=== PATIENT | female | born 1965 ===

== ENCOUNTER → 2019-01-15 | Outpatient (CLI) | payer BC ==
--- NOTE | 2019-01-15 16:52 | CONS ---
Assessment/Plan Assessment/Plan Hospital Course (Demo Recall) 53-year-old female with bilateral patellofemoral syndrome with possible quadricep insertion tendinitis as she had significant pain over that area after workouts. At this time recommending initiation of conservative treatment. Plan: Physical therapy for bilateral patellofemoral syndrome and quadricep insertion tendinitis NSAID regiment with meloxicam 7.5 mg. Recommend the patient continue taking Pro tonix as she has a history of gastritis. She should not take ibuprofen with the meloxicam. She is instructed if she has stomach pain she should stop taking meloxicam. Patient should rest from her gym activities until she begins physical therapy and the therapist thinks she is ready to return to the gym. Follow-up in about 12 weeks. Consultation Date/Type/Reason Admit Date/Time Date of Consultation: Jan 15, 2019 Reason for Consultation Bilateral knee pain Date/Time of Note DATE: 01/15/19 TIME: 16:45 Hx of Present Illness This Is a very active 53-year-old female with a chief complaint of right and left knee pain. The pain is equal in both knees. The pain began approximately 2 weeks ago. The patient's pain is in the anterior aspect of the right and left knee. When this first occurred she had severe sharp pain just proximal to the patella. Now the pain is only anterior. Pain is not radiating to the lower leg. The pain is rated as a 4/10. Patient denies complaints of numbness or tingling. The pain is exacerbated by climbing stairs and ambulation. Pain is not relieved by NSAID's. Patient has been taking ibuprofen on a p.r.n. basis with Protonix as well as using ice. She is frustrated by this pain is limiting her physical activity. She frequently goes to the gym and participates in exercise classes. ----- Duration: 2 weeks Injury: No specific injury. Pain is worse after working out Walking tolerance: Unlimited Limp: No Support: No Swelling: No Crepitation: No Instability: No Stairs: Uses normally Physical Therapy: No Injections: No NSAID's: Ibuprofen Prior surgery: No Back pain: No Hip pain: No Risk of AVN : No Patient denies fever, chills, shortness of breath, chest pain, nausea/vomiting, constipation, diarrhea, numbness, and tingling. Past Medical History Cervical cancer Headaches Past Surgical History Breast reduction Arthroscopic partial medial meniscectomy knee surgery 2014 Family History Significant Family History: no pertinent family hx Social History Alcohol Use: rarely Smoking Status: Former smoker Drug Use: none Exam/Review of Systems Exam Vitals Weight: 158 Height: 5 foot 8 inches Temperature: 90.6 Heart Rate: 67 Blood Pressure: 120/82 Respiratory Rate: 12 Exam General: Awake, alert, in no acute distress, pleasant and cooperative Heart: regular rhythm Lungs: breathing comfortably, no tachypnea or dyspnea MUSCULOSKELETAL: Right and Left Knee This is a well developed female who is alert, oriented times three and in no apparent distress. Skin is intact over the right and left knee as well as the lower extremity with no abrasions, lacerations, or ulcerations. Observation of the patient's gait reveals a non-antalgic gait with no thrust. Frontal plane alignment is neutral on the right and left knees. There is no pain on palpation of either joint line. There is no pain over the quadricep insertion or patella tendon. The patient demonstrates grinding anteriorly with ROM. Range of motion: 0 extension to approximately 140 degrees of flexion. Collateral ligament testing reveals no instability with varus or valgus stress at 0 and 30 degrees of flexion. Negative Liliana's and negative posterior drawer. Neurovascularly intact with 5/5 EHL/tibialis anterior/gastroc. Sensation intact to light touch in a sural, saphenous, deep peroneal, superficial peroneal, medial and lateral plantar nerve distribution. Palpable, symmetric dorsalis pedis and posterior tibial pulses in both lower extremities. Hip examination normal Imaging Imaging The patient received a standard set of films today that were personally revi ewed. Imaging included a standing bilateral knee AP, PA flexion, merchant views and a dedicated lateral of the affected knee: There is neutral alignment of the knee. There is no loss of joint space in any compartment(s). No other degenerative changes. No fracture. No acute abnormality. No joint effusion. NASIR ADAMS MD Jan 15, 2019 16:52
--- NOTE | 2019-01-16 16:26 | RADRPT ---
PROCEDURE: XR Knees. CLINICAL INDICATION: Bilateral knee pain. TECHNIQUE: Total of eight views. Weightbearing frontal, oblique, and lateral views of the both kne es. Patellar views of both knees. COMPARISON: No prior study is available for comparison. FINDINGS: There is no fracture or dislocation. The soft tissues are normal. Articular surfaces are intact. There is no lytic or blastic lesion. There is no radiopaque foreign body. IMPRESSION: 1. Unremarkable images of both knees. RPTAT: QQ .Seymour Carter MD, MD Date Time Electronically viewed and signed by .Seymour Carter MD, MD on 01/16/2019 16:25 .R/
== END | disposition home or self-care (01) ==
LOC: HKI 14:16
PROVIDERS: ATTEND Orthopaedic Surgery Adult Reconstructive Orthopaedic Surgery
DX: M25.862 Other specified joint disorders, left knee (principal); M25.861 Other specified joint disorders, right knee; M76.52 Patellar tendinitis, left knee; M76.51 Patellar tendinitis, right knee
CPT/HCPCS: 73564; G0463